=== PATIENT | female | born 1995 | race Caucasian/White ===

== ENCOUNTER 2022-04-07 16:42 | Outpatient (CLI) | payer OTHER, SELFPAY ==
[2022-04-07 23:28] LABS: Chlamydia DNA Amplified* NOT DETECTED (No Detected); GC DNA Amplified* NOT DETECTED (No Detected)
== END 2022-04-07 16:43 | disposition home or self-care (01) ==
LOC: LKVREF 16:42
PROVIDERS: Visit Provider Nurse Practitioner Family
DX: N89.8 Other specified noninflammatory disorders of vagina (principal)
CPT/HCPCS: 87086; 87491; 87591